=== PATIENT | female | born 1985 | race Two or more races ===

== ENCOUNTER → 2024-04-16 | Outpatient (CLI) | payer BC, MEDICAID, SELFPAY ==
--- NOTE | 2024-04-16 10:52 | XR_ITS ---
Examination: Right knee 3 views TECHNIQUE: AP oblique lateral right knee standing 3 views Exam date and time: April 16, 2024 [id number] hours INDICATIONS: Status post right knee arthroplasty January 2024 FINDINGS: Total right knee arthroplasty. Satisfactory alignment No loosening of the prosthetic components No fracture IMPRESSION: Total right knee arthroplasty with satisfactory alignment
== END | disposition home or self-care (01) ==
PROVIDERS: PCP Physician Assistant; Referring Provider Orthopaedic Surgery Adult Reconstructive Orthopaedic Surgery; Visit Provider Orthopaedic Surgery Adult Reconstructive Orthopaedic Surgery
DX: M17.11 Unilateral primary osteoarthritis, right knee (principal); Z96.651 Presence of right artificial knee joint
CPT/HCPCS: 73564